=== PATIENT | male | born 1940 | race African-American/Black ===

== ENCOUNTER → 2016-07-13 09:38 | Outpatient (CLI) | payer MEDICARE ==
[2016-04-08 13:16] VITALS: BMI 35.0
[~2016-07-13 09:38] MED LIST: CALAN SR180 MG PO; DIOVAN160 MG PO; HYDROCODONE-APA1 TAB PO; MULTI-DAY VITAM1 TAB PO; SAW PALMETTO450 MG PO
[2016-07-13 10:22] LABS: BASOPHILS 0.1 % (0.0-2.0); HEMATOCRIT 38.5 % (42.0-54.0); HEMOGLOBIN 12.2 g/dL (13.5-17.5); IMMATURE GRANULOCYTES 0.1 % (0-5); LYMPHOCYTES 32.6 % (15-50); MCHC 31.7 g/dL (31.0-37.0); MEAN PLATELET VOLUME 9.9 fL (7.4-10.4); MONOCYTES 7.4 % (2-11); NEUTROPHILS 58.8 % (40-80); PLATELET COUNT 309 10x3/uL (130-400); RBC 3.93 10x6/uL (4.20-6.10); RDW 13.2 % (11.5-14.5); WBC 7.9 10x3/uL (4.8-10.8)
[2016-07-13 10:39] LABS: ALBUMIN 3.5 g/dL (3.4-5.0); BILIRUBIN - DIRECT 0.13 mg/dL (0.00-0.30); BILIRUBIN - INDIRECT 0.46 mg/dL (0.00-1.00); BILIRUBIN - TOTAL 0.59 mg/dL (0.2-1.3); PROTEIN - SERUM 7.5 g/dL (6.4-8.2)
== END | disposition home or self-care (01) ==
LOC: D.LAB 09:38
PROVIDERS: Surgery
DX: Z85.038 Personal history of other malignant neoplasm of large intestine (principal)

== ENCOUNTER → 2016-10-12 10:02 | Outpatient (CLI) | payer MEDICARE ==
[2016-04-08 13:16] VITALS: BMI 35.0
[2016-10-12 10:37] LABS: BASOPHILS 0.1 % (0-2); EOSINOPHILS 1.2 % (0-7); HEMATOCRIT 40.4 % (42.0-54.0); HEMOGLOBIN 12.8 g/dL (13.5-17.5); LYMPHOCYTES 31.1 % (15-50); MCH 31.4 pg (26.0-34.0); MCHC 31.7 g/dL (31.0-37.0); MONOCYTES 9.5 % (2-11); NEUTROPHILS 58.1 % (40-80); PLATELET COUNT 293 10x3/uL (130-400); RBC 4.08 10x6/uL (4.20-6.10); RDW 13.2 % (11.5-14.5); WBC 7.5 10x3/uL (4.8-10.8)
[2016-10-12 11:07] LABS: ALBUMIN 3.4 g/dL (3.4-5.0); BILIRUBIN - DIRECT 0.11 mg/dL (0.00-0.30); BILIRUBIN - INDIRECT 0.62 mg/dL (0.00-1.00); BILIRUBIN - TOTAL 0.73 mg/dL (0.2-1.3); PROTEIN - SERUM 7.7 g/dL (6.4-8.2)
== END | disposition home or self-care (01) ==
LOC: D.LAB 10:02
PROVIDERS: Surgery
DX: Z85.038 Personal history of other malignant neoplasm of large intestine (principal)

== ENCOUNTER → 2017-01-11 09:48 | Outpatient (CLI) | payer MEDICARE ==
[2016-04-08 13:16] VITALS: BMI 35.0
[2017-01-11 10:37] LABS: BASOPHILS 0.2 % (0-2); EOSINOPHILS 0.8 % (0-7); HEMATOCRIT 42.7 % (42.0-54.0); HEMOGLOBIN 13.6 g/dL (13.5-17.5); IMMATURE GRANULOCYTES 0.2 % (0-5); LYMPHOCYTES 27.4 % (15-50); MCHC 31.9 g/dL (31.0-37.0); MCV 100.5 fL (80.0-100.0); MEAN PLATELET VOLUME 10.1 fL (7.4-10.4); NEUTROPHILS 63.4 % (40-80); PLATELET COUNT 290 10x3/uL (130-400); RBC 4.25 10x6/uL (4.20-6.10); WBC 8.9 10x3/uL (4.8-10.8)
[2017-01-11 10:54] LABS: ALBUMIN 3.5 g/dL (3.4-5.0); BILIRUBIN - DIRECT 0.1 mg/dL (0.00-0.30); BILIRUBIN - INDIRECT 0.6 mg/dL (0.00-1.00); BILIRUBIN - TOTAL 0.7 mg/dL (0.2-1.3); PROTEIN - SERUM 7.8 g/dL (6.4-8.2)
== END | disposition home or self-care (01) ==
LOC: D.LAB 09:48
PROVIDERS: Surgery
DX: Z85.038 Personal history of other malignant neoplasm of large intestine (principal)

== ENCOUNTER → 2017-04-12 09:46 | Outpatient (CLI) | payer MEDICARE ==
[2016-04-08 13:16] VITALS: BMI 35.0
[2017-04-12 10:50] LABS: BASOPHILS 0.1 % (0-2); EOSINOPHILS 1.1 % (0-7); HEMATOCRIT 42.6 % (42.0-54.0); HEMOGLOBIN 13.4 g/dL (13.5-17.5); IMMATURE GRANULOCYTES 0.1 % (0-5); LYMPHOCYTES 29.2 % (15-50); MCH 31.9 pg (26.0-34.0); MCHC 31.5 g/dL (31.0-37.0); MCV 101.4 fL (80.0-100.0); NEUTROPHILS 60.5 % (40-80); PLATELET COUNT 285 10x3/uL (130-400); RDW 12.6 % (11.5-14.5); WBC 7.2 10x3/uL (4.8-10.8)
[2017-04-12 11:13] LABS: ALBUMIN 3.4 g/dL (3.4-5.0); BILIRUBIN - DIRECT 0.1 mg/dL (0.00-0.30); BILIRUBIN - INDIRECT 0.53 mg/dL (0.00-1.00); BILIRUBIN - TOTAL 0.63 mg/dL (0.2-1.3); PROTEIN - SERUM 7.8 g/dL (6.4-8.2)
== END | disposition home or self-care (01) ==
LOC: D.LAB 09:46
PROVIDERS: Surgery
DX: Z85.038 Personal history of other malignant neoplasm of large intestine (principal)

== ENCOUNTER → 2017-07-12 10:07 | Outpatient (CLI) | payer MEDICARE ==
[2016-04-08 13:16] VITALS: BMI 35.0
[2017-07-12 10:44] LABS: BASOPHILS 0.1 % (0-2); EOSINOPHILS 0.7 % (0-7); HEMATOCRIT 41.3 % (42.0-54.0); HEMOGLOBIN 13.4 g/dL (13.5-17.5); IMMATURE GRANULOCYTES 0.1 % (0-5); LYMPHOCYTES 33.3 % (15-50); MCH 31.8 pg (26.0-34.0); MCHC 32.4 g/dL (31.0-37.0); MCV 98.1 fL (80.0-100.0); MEAN PLATELET VOLUME 10.3 fL (7.4-10.4); MONOCYTES 9.9 % (2-11); NEUTROPHILS 55.9 % (40-80); PLATELET COUNT 286 10x3/uL (130-400); RBC 4.21 10x6/uL (4.20-6.10); RDW 12.9 % (11.5-14.5); WBC 9.4 10x3/uL (4.8-10.8)
[2017-07-12 10:49] LABS: ALBUMIN 3.6 g/dL (3.4-5.0); BILIRUBIN - DIRECT 0.11 mg/dL (0.00-0.30); BILIRUBIN - INDIRECT 0.49 mg/dL (0.00-1.00); BILIRUBIN - TOTAL 0.6 mg/dL (0.2-1.3); PROTEIN - SERUM 7.7 g/dL (6.4-8.2)
== END | disposition home or self-care (01) ==
LOC: D.LAB 10:07
PROVIDERS: Surgery
DX: C18.9 Malignant neoplasm of colon, unspecified (principal); I10 Essential (primary) hypertension

== ENCOUNTER → 2019-07-14 09:49 | Outpatient (CLI) | payer MEDICARE ==
[2017-10-06 09:31] VITALS: BMI 36.1
[~2019-07-14 09:49] MED LIST changes: +CENTRUM MEN'S1 EACH PO; -DIOVAN160 MG PO; +DIOVAN320 MG PO; +DYAZIDE 37.5/251 CAP PO
== END | disposition home or self-care (01) ==
LOC: D.CT 09:49
PROVIDERS: ATTEND Family Medicine
DX: R10.10 Upper abdominal pain, unspecified (principal); C18.9 Malignant neoplasm of colon, unspecified

== ENCOUNTER → 2019-07-24 07:52 | Outpatient (CLI) | payer MEDICARE ==
[2017-10-06 09:31] VITALS: BMI 36.1
== END | disposition home or self-care (01) ==
LOC: D.US 07:52
PROVIDERS: ATTEND Family Medicine
DX: R10.10 Upper abdominal pain, unspecified (principal)